=== PATIENT | male | born 1965 | race African-American/Black ===

== ENCOUNTER 2016-04-24 05:17 | Emergency (ER) | payer MEDICARE, OTHER ==
[~2016-04-24] VITALS: Ht 177.8 cm; Wt 81.6 kg
[~2016-04-24 05:17] MED LIST: LANS30CA10; OLAN10TA3; TRAZ300T2
[2016-04-24] MEDS ORDERED: OLANZAPINE 5 MG TABLET ONE (05:27)
[2016-04-24 05:30] VITALS: BP 138/74
[2016-04-24] MEDS ORDERED: OLANZAPINE 5 MG/TAB.RAPDIS PO ONE (05:30)
== END 2016-04-24 06:54 | disposition home or self-care (01) ==
LOC: ER 05:17
DX: F20.9 Schizophrenia, unspecified (principal); N40.0 Benign prostatic hyperplasia without lower urinary tract symptoms; Z91.14 Patient's other noncompliance with medication regimen
CPT/HCPCS: 99283; A4606; Z7610

== ENCOUNTER 2018-12-31 11:23 | Emergency (ER) | payer BC, MEDICARE, OTHER ==
[~2018-12-31] VITALS: Ht 182.9 cm; Wt 59.0 kg
[~2018-12-31 11:23] MED LIST changes: -LANS30CA10; +LANS30CA54
--- NOTE | 2018-12-31 11:23 | NUR ---
"JOSEMANUEL Massey FROM [facility] C/O BLOOD TINGED ARE COMING OUT OF THE MOUTH" PT AAOX0, -SOB, NAD NOTED, PT ON MONITOR, VSS
--- NOTE | 2018-12-31 11:29 | NUR ---
AT BEDSIDE FOR EVAL.
--- NOTE | 2018-12-31 11:30 | NUR ---
PT. 53 Y OLD MALE REC. IN ER AWAKE, BUT NO NONVERBAL PT. HAS TRACH TRACH'D JENS # 8 PT. PLACED ON VENT WITH NOTED SETTINGS, ALARMS ARE SET AND FUNCTIONAL. B/S BILATERALLY RHONCHI, SUX'D FOR MINIMAL AMT. RED BLOOD FROM ORALLY SUX'D, SMALL THICK RED BLOODISH FROM TRACH, EQUAL CHEST RISE NOTED. AND CONTINUE TO MONITOR, PT. STABLE VITALS WITHIN NORMAL LIMITS, AMBU BAG AT THE BEDSIDE. Addendum: 12/31/18 at 1215 by BHARTI GOMEZ RT Amended: Links added.
--- NOTE | 2018-12-31 11:40 | NUR ---
BLOOD DRAWN AND SENT TO LAB
--- NOTE | 2018-12-31 11:44 | NUR ---
URINE SPECIMEN COLLECTED AND SENT TO LAB.
[2018-12-31 11:50] LABS: BASOPHILS # (AUTO) 0.1 /CMM (0.0-0.2); BASOPHILS % (AUTO) 0.6 % (0.0-2.0); EOSINOPHILS % (AUTO) 0.5 % (0.0-6.0); HEMATOCRIT 40 % (39-51); HEMOGLOBIN 13.3 g/dL (13.5-17.5); LYMPHOCYTES # (AUTO) 1.6 /CMM (0.8-4.8); LYMPHOCYTES % (AUTO) 9.9 % (20.0-44.0); MEAN CORPUSCULAR HGB CONC 34 g/dl (31.0-36.0); MEAN CORPUSCULAR VOLUME 94 fL (80-96); MONOCYTES # (AUTO) 0.8 /CMM (0.1-1.30); NEUTROPHILS # (AUTO) 13.8 /CMM (1.8-8.9); PLATELET COUNT (AUTO) 221 /CMM (150-450); RED BLOOD CELL COUNT(AUTO) 4.25 MIL/uL (4.5-6.0); WHITE BLOOD COUNT (AUTO) 16.4 K/uL (4.3-11.0)
[2018-12-31 11:52] LABS: APPEARANCE,URINE Slightly Cloudy (CLEAR); BILIRUBIN,URINE Negative (NEGATIVE); BLOOD, URINE Large Ery/uL (NEGATIVE); COLOR,URINE Dark (YELLOW); KETONES,URINE Negative (NEGATIVE); LEUKOCYTE ESTERASE ,URINE Trace (NEGATIVE); NITRITE, URINE Negative (NEGATIVE); PH,URINE 5.5 (5.0-8.0); PROTEIN,URINE 30 mg/dl (NEGATIVE); UGLUCOSE Negative (NEGATIVE); UROBILINOGEN,URINE 0.2 EU/dL (0.2)
[2018-12-31 12:03] LABS: CALCIUM, SERUM 9.6 mg/dL (8.5-10.1); CARBON DIOXIDE 29 mmol/L (21-32); CHLORIDE 106 mmol/L (98-107); CREATININE 0.8 mg/dL (0.6-1.3); GLUCOSE 125 mg/dL (74-106); POTASSIUM 4.3 mmol/L (3.5-5.1); SODIUM SERUM 141 mmol/L (136-145); UREA NITROGEN, BLOOD 34 mg/dL (7-18)
[2018-12-31 12:04] LABS: BACTERIA,URINE Few /HPF (None Seen); SQUAMOUS EPITHELIAL CELL,UR Rare /HPF (None Seen)
[2018-12-31 12:09] LABS: ALANINE AMINOTRANSFERASE 102 U/L (12-78); ALBUMIN 2.7 g/dL (3.4-5.0); ALKALINE PHOSPHATASE 140 U/L (46-116); ASPARTATE AMINOTRANSFERASE 67 U/L (15-37); BILIRUBIN,DIRECT 0.1 mg/dL (0.0-0.2); BILIRUBIN,TOTAL 0.4 mg/dL (0.2-1.0); TOTAL PROTEIN, SERUM 7.8 g/dL (6.4-8.2)
[2018-12-31] MEDS ORDERED: PIPERACILLIN /TAZOBACTAM 3.375 G in IV D5W 50 ML IV ONE (12:30)
[2018-12-31] MEDS ORDERED: LEVOFLOXACIN 750 MG /D5W 150ML PIGGYBACK IV ONE (12:30)
[2018-12-31] MEDS ORDERED: IV NS 0.9% 1,000 ML BAG IV ONE (12:30)
[2018-12-31] MEDS ORDERED: NUTR1PAC14 PO (13:15)
[2018-12-31] MEDS ORDERED: ASPI-605 GT (13:15)
[2018-12-31] MEDS ORDERED: BISA10SU61 RC (13:15)
[2018-12-31] MEDS ORDERED: CAPT25TA3 GT (13:15)
[2018-12-31] MEDS ORDERED: ALBU2.5V13 IH ×2 (13:15)
[2018-12-31] MEDS ORDERED: LEVE500T9 GT (13:15)
[2018-12-31] MEDS ORDERED: METO25TA6 GT (13:15)
[2018-12-31] MEDS ORDERED: CHLO473M3 MM (13:15)
[2018-12-31] MEDS ORDERED: NA P133E RC (13:15)
[2018-12-31] MEDS ORDERED: HYDR-4076 GT (13:15)
[2018-12-31] MEDS ORDERED: MAGN400O6 GT (13:15)
[2018-12-31] MEDS ORDERED: ACET-868 GT (13:15)
[2018-12-31] MEDS ORDERED: DOCU-141 GT (13:15)
[2018-12-31] MEDS ORDERED: MULT-439 GT (13:15)
[2018-12-31] MEDS ORDERED: CRAN3875 GT (13:16)
[2018-12-31] MEDS ORDERED: PANT40TA2 GT (13:16)
[2018-12-31] MEDS ORDERED: ASCO500C18 GT (13:16)
[2018-12-31] MEDS ORDERED: MAG355OR18 GT (13:16)
[2018-12-31] MEDS ORDERED: NAPH1POW3 PO (13:16)
[2018-12-31] MEDS ORDERED: ONDA8TAB13 GT (13:16)
[2018-12-31] MEDS ORDERED: NUT.237L31 GT (13:16)
[2018-12-31] MEDS ORDERED: FLUO10CA26 GT (13:16)
[2018-12-31] MEDS ORDERED: LEVOFLOXACIN 750 MG /D5W 150ML 150 ML IV ONE (13:26)
--- NOTE | 2018-12-31 14:13 | NUR ---
TRANSFER INFO: [facility] ROOM:120-B ACCEPTED BY: # FOR REPORT: [phone] GIVE REPORT TO JAVIER SANDERSON
--- NOTE | 2018-12-31 14:15 | NUR ---
AMBULANCE ETA [id number]
--- NOTE | 2018-12-31 14:59 | NUR ---
SPOKE TO MARIA E, NURSE AT [facility] TO CALL BACK FOR REPORT, AWARE THAT PT IS ALREADY EN-ROUTE [phone]
[2018-12-31 15:00] VITALS: BP 113/75
--- NOTE | 2018-12-31 15:00 | NUR ---
PT TRANSPORTED TO [facility] VIA [facility], REPORT GIVEN TO [facility] NURSE. PT LEFT IN STABLE CONDITION, VSS, NAD NOTED.
--- NOTE | 2018-12-31 15:23 | NUR ---
REPORT GIVEN TO MARIA E CARSON AT [facility]
== END 2018-12-31 16:18 | disposition short-term general hospital (02) ==
LOC: ER 11:33
DX: E86.0 Dehydration (principal); J18.9 Pneumonia, unspecified organism; N40.0 Benign prostatic hyperplasia without lower urinary tract symptoms; Z60.2 Problems related to living alone; Z79.899 Other long term (current) drug therapy; Z93.0 Tracheostomy status
CPT/HCPCS: 36415; 71045; 80048; 80076; 81001; 83605; 84145; 84484; 85025; 85730; 87040 ×2; 87086; 93005; 96365; 96368; 99285; J1956; J2543; J7060; 81000-TC

== ENCOUNTER 2019-07-19 00:53 | Emergency (ER) | payer OTHER ==
[~2019-07-19] VITALS: Ht 175.3 cm; Wt 111.6 kg
[~2019-07-19 00:53] MED LIST changes: +ACET-868 GT; +ALBU2.5V13 IH; +ASCO500C18 GT; +ASPI-605 GT; +BISA10SU61 RC; +CAPT25TA3 GT; +CHLO473M3 MM; +CRAN3875 GT; +DOCU-141 GT; +FLUO10CA26 GT; +HYDR-4076 GT; -LANS30CA54; +LEVE500T9 GT; +MAG355OR18 GT; +MAGN400O6 GT; +METO25TA6 GT; +MULT-439 GT; +NA P133E RC; +NAPH1POW3 PO; +NUT.237L31 GT; +NUTR1PAC14 PO; -OLAN10TA3; +ONDA8TAB13 GT; +PANT40TA2 GT; -TRAZ300T2
[2019-07-19 00:58] VITALS: BP 162/101
--- NOTE | 2019-07-19 01:00 | NUR ---
PT AAOX4, AMBULATORY WITH STEADY GAIT. BIBRA C/O CHRONIC LOWER BACK PAIN. NO ACUTE DISTRESS NOTED. VSS. PLACED IN BED 1 ON MONITOR AND PULSE OX. EVALUATED BY MD. AWAITING ORDERS.
[2019-07-19] MEDS ORDERED: KETOROLAC TROMETHAMINE INJ 60 MG/2 ML VIAL IM ONE ×2 (01:11→01:30)
[2019-07-19] MEDS ORDERED: oxyCODONE/APAP (5/325 MG) 1 UDTAB TABLET ONE (01:12)
--- NOTE | 2019-07-19 01:18 | NUR ---
Patient discharged to home in stable condition. Written and verbal after care instructions given. Patient verbalizes understanding of instruction.
[2019-07-19] MEDS ORDERED: oxyCODONE/APAP (5/325 MG) 1 UDTAB TABLET PO ONE (01:30)
== END 2019-07-19 01:27 | disposition home or self-care (01) ==
LOC: ER 00:54
DX: M54.5 Low back pain (principal); G40.909 Epilepsy, unspecified, not intractable, without status epilepticus; N40.0 Benign prostatic hyperplasia without lower urinary tract symptoms; E11.9 Type 2 diabetes mellitus without complications; Z60.2 Problems related to living alone; Z79.899 Other long term (current) drug therapy; Z79.82 Long term (current) use of aspirin
CPT/HCPCS: 96372; 99283; J1885

== ENCOUNTER 2019-10-20 02:28 | Emergency (ER) | payer MEDICARE, OTHER ==
[~2019-10-20] VITALS: Ht 175.3 cm; Wt 111.1 kg
[2019-10-20 02:31] VITALS: BP 153/95
[2019-10-20] MEDS ORDERED: OLANZAPINE 5 MG TABLET ONE (02:36)
[2019-10-20] MEDS ORDERED: OLANZAPINE 5 MG TABLET PO ONE (03:00)
== END 2019-10-20 02:48 | disposition home or self-care (01) ==
LOC: ER 02:30
DX: F20.9 Schizophrenia, unspecified (principal); G40.909 Epilepsy, unspecified, not intractable, without status epilepticus; E11.9 Type 2 diabetes mellitus without complications; Z93.0 Tracheostomy status; Z93.1 Gastrostomy status; Z60.2 Problems related to living alone; Z79.899 Other long term (current) drug therapy; Z79.82 Long term (current) use of aspirin